=== PATIENT | female | born 1960 | race Caucasian/White ===

== ENCOUNTER 2017-05-30 15:57 | Inpatient (IN) | payer MEDICAID ==
[~2017-05-30] VITALS: Ht 162.6 cm; Wt 186.5 kg
[~2017-05-30 15:57] MED LIST: ACCU-CHEK COMPACT ST TOP; ACCU-CHEK COMPACT ST XX; ACTOS30 MG OR; AMOXICILLIN500 MG PO; AMPICILLIN500 MG PO; ANTI-FUNGAL12 TOP; ARMOUR THYRO30 MG PO; ARMOUR THYROID15 MG PO; AUGMENTIN875TAB PO; BACLOFEN10 MG PO; BACTRIM DS1 TAB PO; CIPRO500 MG OR; CIPROFLOXACN500 MG PO; CIPROFLOXACN750 MG PO; DARVOCET N-100100 - OR; DARVOCET-N 100100 MG OR; DIFLUCAN150 MG PO; DOXYCYC MONO100 MG OR; FLEXERIL10 MG OR; HUMALOG100 MG/ML SC; HUMULI1 SC; HUMULIN 70/30 SC; JANUVIA100 MG PO; LANTUS100 MG/ML SC; LEVOTHYROXIN50 MC1 PO; LORTAB 10 PO; LORTAB 5/3255 MG PO; LYRICA75 MG OR; MEDDOSEPAK OR; MEDDOSEPAK PO; METFORMIN HCL1000 MG PO; METFORMIN500 M1 OR; METFORMIN500 M1 PO; METFORMIN500 MG OR; METFORMIN500 MG PO; METFORMIN750 MG OR; METFORMIN850 MG PO; NAPROSYN500 MG OR; NAPROSYN500 MG PO; NAPROXEN250 MG PO; NAPROXEN500 MG PO; NO HOME MEDS; NORCO1 TA1 PO; NOVOLIN 70/30 SC; NOVOLIN 701000 UNITS SC; PAXIL40 MG OR; PHENERGAN12.5 MG/TA PO; PREDNISONE20 MG OR; PREMARIN1.25 MG OR; PROVENTIL INH17 GM IN; TRAMADOL HCL50 MG PO; TRENTAL400 MG OR; TRICOR48 MG PO; TRUETEST STRIPS SC; TYLENOL500 MG OR; ULTRAM50 M1 PO; VENTOLIN HFA IN; ZITHROMAX250 MG PO; [UNRECOGNIZED DRUG - OTHER] SC; insulin syringe
[2017-05-30 17:28] LABS: URINE BILIRUBIN - DIPSTICK NEGATIVE (NEGATIVE); URINE BLOOD DIPSTICK LARGE (NEGATIVE); URINE CLARITY CLOUDY; URINE COLOR YELLOW; URINE GLUCOSE - DIPSTICK >=1000 mg/dL (NEGATIVE); URINE KETONE 15 mg/dL (NEGATIVE); URINE NITRITE - DIPSTICK NEGATIVE (Negative); URINE PROTEIN - DIPSTICK 100 mg/dL (NEG-TRACE); URINE SPECIFIC GRAVITY 1.025; URINE UROBILINOGEN - DIPSTICK 0.2 E.U./dL (0.2)
[2017-05-30 17:29] LABS: URINE LEUK ESTERASE MODERATE (NEGATIVE)
[2017-05-30 17:33] LABS: HEMATOCRIT 33.8 % (37.0-47.0); HEMOGLOBIN 12.3 g/dl (12.0-16.0); IMMATURE GRANULOCYTES 0.4 % (0.0-1.0); MEAN CELL VOLUME 88.9 fL CALC (80.0-100.0); MEAN CORPUSCULAR HGB 32.4 pG CALC (26.0-32.0); MEAN CORPUSCULAR HGB CONC 36.4 g/L CALC (32.0-36.0); NEUT# 7.06 thou/uL (2.00-7.15); RED BLOOD COUNT 3.8 mill/uL (4.20-5.60); RED CELL DISTRI WIDTH 14.5 % (11.5-15.5)
[2017-05-30 17:38] LABS: URINE BACTERIA MANY hpf; URINE RBC 25-50 RBC/hpf (0-5); URINE SQUAMOUS EPITHELIAL CELL FEW EPI/hpf (0-FEW); URINE WBC >100 WBC/hpf (0-5)
[2017-05-30 17:45] LABS: ALBUMIN 4.1 g/dL (3.2-5.0); ALKALINE PHOSPHATASE 58 u/l (38-126); AMYLASE < 30 u/l (30-110); ANION GAP 16 (6-22 (CALC)); BILIRUBIN, TOTAL 1.9 mg/dL (0.0-1.4); BUN 15 mg/dL (7-17); BUN/CREATININE RATIO 22 (12-20 (CALC)); CALCIUM 8.5 mg/dL (8.4-10.2); CARBON DIOXIDE 24 mmol/l (22-30); CHLORIDE 93 mmol/l (95-108); CREATININE 0.7 mg/dL (0.5-1.0); GFR > 60 ML/MIN (>=60 (CALC)); GFR FOR AFR.AMER. > 60 ML/MIN (>=60 (CALC)); GLUCOSE 280 mg/dL (65-105); LIPASE 25 u/l (23-300); POTASSIUM 2.9 mmol/l (3.5-5.1); SGOT/AST 15 u/l (14-36); SGPT/ALT 33 u/l (9-52); SODIUM 130 mmol/l (137-146); TOTAL PROTEIN 7.2 g/dL (6.3-8.2)
[2017-05-30 17:56] LABS: MYOGLOBIN 45 ng/mL (0 - 62)
[2017-05-30 21:25] VITALS: BP 97/53
[2017-05-31 00:59] VITALS: BP 110/63
[2017-05-31 04:09] VITALS: BP 99/65
[2017-05-31 06:39] LABS: HEMATOCRIT 31.1 % (37.0-47.0); IMMATURE GRANULOCYTES 0.4 % (0.0-1.0); MEAN CELL VOLUME 90.7 fL CALC (80.0-100.0); MEAN CORPUSCULAR HGB 32.1 pG CALC (26.0-32.0); MEAN CORPUSCULAR HGB CONC 35.4 g/L CALC (32.0-36.0); NEUT# 3.77 thou/uL (2.00-7.15); RED BLOOD COUNT 3.43 mill/uL (4.20-5.60); RED CELL DISTRI WIDTH 14.5 % (11.5-15.5)
[2017-05-31 06:48] LABS: ANION GAP 12 (6-22 (CALC)); BUN 12 mg/dL (7-17); BUN/CREATININE RATIO 20 (12-20 (CALC)); CALCIUM 7.5 mg/dL (8.4-10.2); CARBON DIOXIDE 24 mmol/l (22-30); CREATININE 0.6 mg/dL (0.5-1.0); GFR > 60 ML/MIN (>=60 (CALC)); GFR FOR AFR.AMER. > 60 ML/MIN (>=60 (CALC)); GLUCOSE 81 mg/dL (65-105); POTASSIUM 3.2 mmol/l (3.5-5.1); SODIUM 136 mmol/l (137-146)
[2017-05-31 06:49] LABS: CHLORIDE 103 mmol/l (95-108)
[2017-05-31 09:00] VITALS: BP 117/58
[2017-05-31 11:31] VITALS: BP 90/50
[2017-05-31 13:04] LABS: C. DIFFICILE TOXIN A&B NEGATIVE (NEGATIVE)
[2017-05-31 15:48] VITALS: BP 103/56
[2017-05-31 19:33] VITALS: BP 102/55
[2017-06-01] VITALS (7 sets, daily range): BP systolic 91–117; BP diastolic 49–76
[2017-06-01 06:08] LABS: HEMATOCRIT 28.4 % (37.0-47.0); HEMOGLOBIN 10.2 g/dl (12.0-16.0); IMMATURE GRANULOCYTES 0.5 % (0.0-1.0); MEAN CELL VOLUME 89.9 fL CALC (80.0-100.0); MEAN CORPUSCULAR HGB 32.3 pG CALC (26.0-32.0); MEAN CORPUSCULAR HGB CONC 35.9 g/L CALC (32.0-36.0); NEUT# 2.87 thou/uL (2.00-7.15); RED BLOOD COUNT 3.16 mill/uL (4.20-5.60); RED CELL DISTRI WIDTH 14.4 % (11.5-15.5)
[2017-06-01 06:28] LABS: ANION GAP 12 (6-22 (CALC)); BUN 7 mg/dL (7-17); BUN/CREATININE RATIO 12 (12-20 (CALC)); CALCIUM 7.3 mg/dL (8.4-10.2); CARBON DIOXIDE 22 mmol/l (22-30); CHLORIDE 105 mmol/l (95-108); CREATININE 0.6 mg/dL (0.5-1.0); GFR > 60 ML/MIN (>=60 (CALC)); GFR FOR AFR.AMER. > 60 ML/MIN (>=60 (CALC)); GLUCOSE 75 mg/dL (65-105); MAGNESIUM 1.2 mg/dL (1.6-2.3); POTASSIUM 2.8 mmol/l (3.5-5.1); SODIUM 136 mmol/l (137-146)
[2017-06-02 04:36] VITALS: BP 116/65
[2017-06-02 05:58] LABS: HEMOGLOBIN 9.9 g/dl (12.0-16.0); MEAN CORPUSCULAR HGB 31.8 pG CALC (26.0-32.0); MEAN CORPUSCULAR HGB CONC 35.4 g/L CALC (32.0-36.0); RED BLOOD COUNT 3.11 mill/uL (4.20-5.60); RED CELL DISTRI WIDTH 14.2 % (11.5-15.5)
[2017-06-02 06:21] LABS: ANION GAP 12 (6-22 (CALC)); BUN 4 mg/dL (7-17); BUN/CREATININE RATIO 8 (12-20 (CALC)); CALCIUM 7.4 mg/dL (8.4-10.2); CARBON DIOXIDE 25 mmol/l (22-30); CHLORIDE 101 mmol/l (95-108); CREATININE 0.6 mg/dL (0.5-1.0); GFR > 60 ML/MIN (>=60 (CALC)); GFR FOR AFR.AMER. > 60 ML/MIN (>=60 (CALC)); GLUCOSE 61 mg/dL (65-105); POTASSIUM 2.7 mmol/l (3.5-5.1); SODIUM 135 mmol/l (137-146)
[2017-06-02 07:49] VITALS: BP 103/55
[2017-06-02 11:02] VITALS: BP 93/50
[2017-06-02 15:19] VITALS: BP 98/63
[2017-06-02 19:35] VITALS: BP 114/67
[2017-06-02 23:33] VITALS: BP 114/70
[2017-06-03] VITALS (9 sets, daily range): BP systolic 96–118; BP diastolic 42–68
[2017-06-03 05:20] LABS: ANION GAP 10 (6-22 (CALC)); BUN 3 mg/dL (7-17); BUN/CREATININE RATIO 7 (12-20 (CALC)); CALCIUM 7.3 mg/dL (8.4-10.2); CARBON DIOXIDE 25 mmol/l (22-30); CHLORIDE 104 mmol/l (95-108); CREATININE 0.5 mg/dL (0.5-1.0); GFR > 60 ML/MIN (>=60 (CALC)); GFR FOR AFR.AMER. > 60 ML/MIN (>=60 (CALC)); GLUCOSE 140 mg/dL (65-105); POTASSIUM 2.9 mmol/l (3.5-5.1); PROTHROMBIN TIME 11.4 SECONDS (9.0-12.5); SODIUM 136 mmol/l (137-146)
[2017-06-03 05:58] LABS: HEMATOCRIT 25.6 % (37.0-47.0); IMMATURE GRANULOCYTES 0.9 % (0.0-1.0); MEAN CELL VOLUME 91.1 fL CALC (80.0-100.0); MEAN CORPUSCULAR HGB CONC 35.2 g/L CALC (32.0-36.0); NEUT# 2.97 thou/uL (2.00-7.15); RED BLOOD COUNT 2.81 mill/uL (4.20-5.60); RED CELL DISTRI WIDTH 14.2 % (11.5-15.5)
[2017-06-03 17:37] LABS: ANION GAP 10 (6-22 (CALC)); BUN 3 mg/dL (7-17); BUN/CREATININE RATIO 6 (12-20 (CALC)); CALCIUM 7.1 mg/dL (8.4-10.2); CARBON DIOXIDE 24 mmol/l (22-30); CHLORIDE 103 mmol/l (95-108); CREATININE 0.4 mg/dL (0.5-1.0); GFR > 60 ML/MIN (>=60 (CALC)); GFR FOR AFR.AMER. > 60 ML/MIN (>=60 (CALC)); GLUCOSE 147 mg/dL (65-105); POTASSIUM 3.1 mmol/l (3.5-5.1); SODIUM 133 mmol/l (137-146)
[2017-06-04 00:02] VITALS: BP 108/52
[2017-06-04 04:44] VITALS: BP 114/61
[2017-06-04 07:48] VITALS: BP 113/67
[2017-06-04] MEDS ORDERED: TAMSULOSIN HCL0.4 MG PO (11:34)
[2017-06-04] MEDS ORDERED: DITROPAN5 MG/TA1 PO (11:34)
[2017-06-04] MEDS ORDERED: TRAMADOL HCL50 MG PO (11:34)
[2017-06-04] MEDS ORDERED: CIPROFLOXACN500 MG PO (11:34)
[2017-06-04] MEDS ORDERED: BACTRIM DS1 TAB PO (11:36)
== END 2017-06-04 13:10 | disposition home or self-care (01) | DRG 690 ==
LOC: ED 15:57 → ED-I 20:00 → ED 20:33 → MS2 20:34
PROVIDERS: Emergency Medicine; Internal Medicine; Nurse Practitioner Family; ADMIT Internal Medicine; ATTEND Internal Medicine
PROC: 0T778DZ Dilation of Left Ureter with Intraluminal Device, Via Natural or Artificial Opening Endoscopic (ICD-10-PCS; principal; 2017-06-03)
PROC: BT1F1ZZ Fluoroscopy of Left Kidney, Ureter and Bladder using Low Osmolar Contrast (ICD-10-PCS; 2017-06-03)
DX: N13.6 Pyonephrosis (principal); E11.65 Type 2 diabetes mellitus with hyperglycemia; E87.1 Hypo-osmolality and hyponatremia; E87.6 Hypokalemia; E03.9 Hypothyroidism, unspecified; M19.90 Unspecified osteoarthritis, unspecified site; F79 Unspecified intellectual disabilities; E83.42 Hypomagnesemia; R63.4 Abnormal weight loss; B96.20 Unspecified Escherichia coli [E. coli] as the cause of diseases classified elsewhere; Z87.442 Personal history of urinary calculi; Z87.891 Personal history of nicotine dependence; Z79.4 Long term (current) use of insulin; Z87.440 Personal history of urinary (tract) infections; Z79.84 Long term (current) use of oral hypoglycemic drugs
CPT/HCPCS: J1650; Q9967

== ENCOUNTER 2017-06-11 11:44 | Emergency (ER) | payer MEDICAID ==
[~2017-06-11] VITALS: Ht 162.6 cm; Wt 80.0 kg
[~2017-06-11 11:44] MED LIST changes: +DITROPAN5 MG/TA1 PO; +TAMSULOSIN HCL0.4 MG PO
[2017-06-11 12:32] LABS: URINE BILIRUBIN - DIPSTICK NEGATIVE (NEGATIVE); URINE BLOOD DIPSTICK SMALL (NEGATIVE); URINE COLOR YELLOW; URINE GLUCOSE - DIPSTICK NEGATIVE (NEGATIVE); URINE KETONE NEGATIVE (NEGATIVE); URINE LEUK ESTERASE TRACE (NEGATIVE); URINE NITRITE - DIPSTICK NEGATIVE (Negative); URINE PROTEIN - DIPSTICK NEGATIVE (NEG-TRACE); URINE UROBILINOGEN - DIPSTICK 0.2 E.U./dL (0.2)
[2017-06-11 12:33] LABS: URINE CLARITY SLIGHT CLOUDY; URINE EPITHELIAL CELLS FEW EPI/hpf (0-FEW); URINE RBC 0-2 RBC/hpf (0-5); URINE WBC 0-2 WBC/hpf (0-5)
[2017-06-11 13:21] LABS: HEMATOCRIT 30.3 % (37.0-47.0); HEMOGLOBIN 10.1 g/dl (12.0-16.0); IMMATURE GRANULOCYTES 0.6 % (0.0-1.0); MEAN CELL VOLUME 94.1 fL CALC (80.0-100.0); MEAN CORPUSCULAR HGB 31.4 pG CALC (26.0-32.0); MEAN CORPUSCULAR HGB CONC 33.3 g/L CALC (32.0-36.0); NEUT# 3.26 thou/uL (2.00-7.15); RED BLOOD COUNT 3.22 mill/uL (4.20-5.60)
[2017-06-11 13:25] LABS: ALBUMIN 4.1 g/dL (3.2-5.0); ALKALINE PHOSPHATASE 48 u/l (38-126); ANION GAP 14 (6-22 (CALC)); BILIRUBIN, TOTAL 0.9 mg/dL (0.0-1.4); BUN 17 mg/dL (7-17); BUN/CREATININE RATIO 26 (12-20 (CALC)); CALCIUM 9.4 mg/dL (8.4-10.2); CARBON DIOXIDE 29 mmol/l (22-30); CHLORIDE 101 mmol/l (95-108); CREATININE 0.7 mg/dL (0.5-1.0); GFR > 60 ML/MIN (>=60 (CALC)); GFR FOR AFR.AMER. > 60 ML/MIN (>=60 (CALC)); GLUCOSE 125 mg/dL (65-105); POTASSIUM 3.9 mmol/l (3.5-5.1); SGOT/AST 30 u/l (14-36); SGPT/ALT 38 u/l (9-52); SODIUM 140 mmol/l (137-146); TOTAL PROTEIN 7.4 g/dL (6.3-8.2)
[2017-06-11] MEDS ORDERED: PERCOCET 5/325M1 TAB PO (13:41)
[2017-06-11 13:59] VITALS: BP 132/71
== END 2017-06-11 14:05 | disposition home or self-care (01) | DRG 700 ==
LOC: ED 11:44
PROVIDERS: Emergency Medicine
DX: T83.84XA Pain due to genitourinary prosthetic devices, implants and grafts, initial encounter (principal); N20.9 Urinary calculus, unspecified; E11.9 Type 2 diabetes mellitus without complications; M19.90 Unspecified osteoarthritis, unspecified site; Y83.1 Surgical operation with implant of artificial internal device as the cause of abnormal reaction of the patient, or of later complication, without mention of misadventure at the time of the procedure

== ENCOUNTER 2017-07-19 08:52 | Emergency (ER) | payer MEDICAID ==
[~2017-07-19] VITALS: Ht 162.6 cm; Wt 70.0 kg
[~2017-07-19 08:52] MED LIST changes: +LANTUS100 UNIT/M SC; +PERCOCET 5/325M1 TAB PO
[2017-07-19] MEDS ORDERED: LEVOTHYROXIN150 MC1 PO (09:20)
[2017-07-19] MEDS ORDERED: BUDEPRION150 MG PO (09:21)
[2017-07-19] MEDS ORDERED: CELEXA20 MG PO (09:21)
[2017-07-19] MEDS ORDERED: NEURONTIN300 MG PO (09:21)
[2017-07-19 09:39] LABS: URINE BILIRUBIN - DIPSTICK NEGATIVE (NEGATIVE); URINE BLOOD DIPSTICK LARGE (NEGATIVE); URINE CLARITY CLOUDY; URINE COLOR YELLOW; URINE GLUCOSE - DIPSTICK >=1000 mg/dL (NEGATIVE); URINE KETONE NEGATIVE (NEGATIVE); URINE LEUK ESTERASE MODERATE (NEGATIVE); URINE NITRITE - DIPSTICK NEGATIVE (Negative); URINE PROTEIN - DIPSTICK 100 mg/dL (NEG-TRACE); URINE UROBILINOGEN - DIPSTICK 0.2 E.U./dL (0.2)
[2017-07-19 09:41] LABS: URINE BACTERIA MANY hpf; URINE WBC >100 WBC/hpf (0-5)
[2017-07-19 09:42] LABS: URINE RBC 25-50 RBC/hpf (0-5)
[2017-07-19 09:43] LABS: URINE YEAST MODERATE hpf
[2017-07-19 09:44] LABS: URINE SQUAMOUS EPITHELIAL CELL FEW EPI/hpf (0-FEW); URINE TRANSITIONAL EPI. CELLS FEW hpf
[2017-07-19] MEDS ORDERED: PERCOCET 5/321 COMBO PO (09:55)
[2017-07-19] MEDS ORDERED: BACTRIM DS1 TAB PO (09:55)
[2017-07-19] MEDS ORDERED: PYRIDIUM200 MG PO (09:55)
[2017-07-19 10:15] VITALS: BP 106/66
== END 2017-07-19 10:15 | disposition home or self-care (01) | DRG 690 ==
LOC: ED 08:52
PROVIDERS: Emergency Medicine
DX: N39.0 Urinary tract infection, site not specified (principal); B37.9 Candidiasis, unspecified; R30.0 Dysuria; R10.32 Left lower quadrant pain

== ENCOUNTER 2017-09-27 11:32 | Emergency (ER) | payer MEDICAID ==
[~2017-09-27] VITALS: Ht 162.6 cm; Wt 69.0 kg
[~2017-09-27 11:32] MED LIST changes: +BUDEPRION150 MG PO; +CELEXA20 MG PO; +LEVOTHYROXIN150 MC1 PO; +NEURONTIN300 MG PO; +PERCOCET 5/321 COMBO PO; +PYRIDIUM200 MG PO
[2017-09-27 13:34] LABS: URINE BILIRUBIN - DIPSTICK NEGATIVE (NEGATIVE); URINE BLOOD DIPSTICK TRACE-INTACT (NEGATIVE); URINE COLOR YELLOW; URINE GLUCOSE - DIPSTICK >=1000 mg/dL (NEGATIVE); URINE KETONE NEGATIVE (NEGATIVE); URINE LEUK ESTERASE TRACE (NEGATIVE); URINE NITRITE - DIPSTICK NEGATIVE (Negative); URINE PROTEIN - DIPSTICK NEGATIVE (NEG-TRACE); URINE UROBILINOGEN - DIPSTICK 0.2 E.U./dL (0.2)
[2017-09-27 13:36] LABS: URINE CLARITY CLEAR
[2017-09-27 13:37] LABS: HEMATOCRIT 31.1 % (37.0-47.0); HEMOGLOBIN 10.7 g/dl (12.0-16.0); IMMATURE GRANULOCYTES 1.3 % (0.0-1.0); MEAN CELL VOLUME 84.7 fL CALC (80.0-100.0); MEAN CORPUSCULAR HGB 29.2 pG CALC (26.0-32.0); MEAN CORPUSCULAR HGB CONC 34.4 g/L CALC (32.0-36.0); NEUT# 4.1 thou/uL (2.00-7.15); RED BLOOD COUNT 3.67 mill/uL (4.20-5.60); RED CELL DISTRI WIDTH 14.2 % (11.5-15.5)
[2017-09-27 13:41] LABS: ALBUMIN 3.9 g/dL (3.2-5.0); ALKALINE PHOSPHATASE 101 u/l (38-126); ANION GAP 19 (6-22 (CALC)); BILIRUBIN, TOTAL 0.6 mg/dL (0.0-1.4); BUN 20 mg/dL (7-17); BUN/CREATININE RATIO 28 (12-20 (CALC)); CALCIUM 10.6 mg/dL (8.4-10.2); CARBON DIOXIDE 28 mmol/l (22-30); CHLORIDE 90 mmol/l (95-108); CREATININE 0.7 mg/dL (0.5-1.0); GFR > 60 ML/MIN (>=60 (CALC)); GFR FOR AFR.AMER. > 60 ML/MIN (>=60 (CALC)); POTASSIUM 3.7 mmol/l (3.5-5.1); SGOT/AST 24 u/l (14-36); SGPT/ALT 25 u/l (9-52); SODIUM 132 mmol/l (137-146); TOTAL PROTEIN 7.4 g/dL (6.3-8.2)
[2017-09-27 13:52] LABS: MYOGLOBIN 26 ng/mL (0 - 62)
[2017-09-27 13:54] LABS: GLUCOSE 577 mg/dL (65-105)
[2017-09-27 15:46] VITALS: BP 102/60
== END 2017-09-27 15:53 | disposition home or self-care (01) | DRG 639 ==
LOC: ED 11:32 → ED-I 15:31 → ED 15:53
PROVIDERS: Emergency Medicine
DX: E11.65 Type 2 diabetes mellitus with hyperglycemia (principal); R53.1 Weakness; Z79.4 Long term (current) use of insulin; Z79.84 Long term (current) use of oral hypoglycemic drugs; R94.31 Abnormal electrocardiogram [ECG] [EKG]

== ENCOUNTER 2019-07-11 17:50 | Emergency (ER) | payer OTHER ==
[~2019-07-11] VITALS: Ht 162.6 cm; Wt 73.6 kg
[~2019-07-11 17:50] MED LIST changes: +NOVOLOG FL100 UNIT/M SC; +ROCEPHIN 2 GM2 GM IV
[2019-07-11] MEDS ORDERED: VALACYCLOVIR500 MG PO ×2 (18:20→18:28)
[2019-07-11] MEDS ORDERED: IBUPROFEN600 MG PO ×2 (18:20→18:28)
[2019-07-11] MEDS ORDERED: TRAZODONE100 MG PO (18:29)
[2019-07-11] MEDS ORDERED: DONEPEZIL5 MG PO (18:30)
[2019-07-11] MEDS ORDERED: ONDANSETRON4 MG PO (18:30)
[2019-07-11] MEDS ORDERED: ATORVASTATIN CA20 MG PO (18:31)
[2019-07-11] MEDS ORDERED: LEVOTHYROXIN137 MCG PO (18:31)
[2019-07-11] MEDS ORDERED: BUPROPION HCL150 M2 PO (18:32)
[2019-07-11 18:35] VITALS: BP 135/75
== END 2019-07-11 18:35 | disposition home or self-care (01) ==
LOC: ED 17:50
DX: B02.9 Zoster without complications (principal); E11.9 Type 2 diabetes mellitus without complications; F17.210 Nicotine dependence, cigarettes, uncomplicated; Z79.4 Long term (current) use of insulin

== ENCOUNTER 2021-10-22 12:56 | Emergency (ER) | payer OTHER ==
[~2021-10-22] VITALS: Ht 162.6 cm; Wt 81.3 kg
[~2021-10-22 12:56] MED LIST changes: +ATORVASTATIN CA20 MG PO; +BUPROPION HCL150 M2 PO; +DONEPEZIL5 MG PO; +IBUPROFEN600 MG PO; +LEVOTHYROXIN137 MCG PO; +ONDANSETRON4 MG PO; +TRAZODONE100 MG PO; +VALACYCLOVIR500 MG PO
[2021-10-22 13:32] LABS: GFR > 60 ML/MIN (>=60 (CALC)); GFR FOR AFR.AMER. > 60 ML/MIN (>=60 (CALC))
[2021-10-22 13:35] LABS: IMMATURE GRANULOCYTES 0.2 % (0.0-5.0); MEAN CELL VOLUME 88.9 fL CALC (80.0-100.0); MEAN CORPUSCULAR HGB 31.2 pG CALC (26.0-32.0); MEAN CORPUSCULAR HGB CONC 35.1 g/dL CAL (32.0-36.0); NEUT# 3.86 thou/uL (2.00-7.15); RED BLOOD COUNT 4.42 mill/uL (4.20-5.60); RED CELL DISTRI WIDTH 13.4 % (11.5-15.5)
[2021-10-22 13:38] LABS: HEMATOCRIT 39.3 % (37.0-47.0); HEMOGLOBIN 13.8 g/dl (12.0-16.0)
[2021-10-22 13:49] LABS: ALBUMIN 4.5 g/dL (3.2-5.0); ALKALINE PHOSPHATASE 66 u/l (38-126); BUN 24 mg/dL (7-17); BUN/CREATININE RATIO 33 (12-20 (CALC)); CARBON DIOXIDE 29 mmol/l (22-30); CHLORIDE 93 mmol/l (95-108); CREATININE 0.7 mg/dL (0.5-1.0); GFR > 60 ML/MIN (>=60 (CALC)); GFR FOR AFR.AMER. > 60 ML/MIN (>=60 (CALC)); POTASSIUM 4.3 mmol/l (3.5-5.1); SGOT/AST 20 u/l (14-36); TOTAL PROTEIN 7.8 g/dL (6.3-8.2)
[2021-10-22 13:50] LABS: ANION GAP 14 (6-22 (CALC)); BILIRUBIN, TOTAL 1.2 mg/dL (0.0-1.4); SODIUM 132 mmol/l (137-146)
[2021-10-22 16:22] LABS: URINE BILIRUBIN - DIPSTICK NEGATIVE (NEGATIVE); URINE BLOOD DIPSTICK TRACE-INTACT (NEGATIVE); URINE COLOR YELLOW; URINE GLUCOSE - DIPSTICK >=1000 mg/dL (NEGATIVE); URINE KETONE NEGATIVE (NEGATIVE); URINE LEUK ESTERASE NEGATIVE (NEGATIVE); URINE PROTEIN - DIPSTICK NEGATIVE (NEG-TRACE); URINE UROBILINOGEN - DIPSTICK 0.2 E.U./dL (0.2)
[2021-10-22 16:24] LABS: URINE NITRITE - DIPSTICK NEGATIVE (Negative)
[2021-10-22 16:47] LABS: ACT PARTIAL THROMBO TIME 21.7 SECONDS (20.0-32.5)
[2021-10-22 17:47] VITALS: BP 120/63
== END 2021-10-22 18:10 | disposition short-term general hospital (02) ==
LOC: ED 12:56
PROVIDERS: Family Medicine
DX: I20.0 Unstable angina (principal); E11.9 Type 2 diabetes mellitus without complications; F41.9 Anxiety disorder, unspecified; F32.A Depression, unspecified; F17.200 Nicotine dependence, unspecified, uncomplicated; Z79.4 Long term (current) use of insulin; Z87.440 Personal history of urinary (tract) infections
CPT/HCPCS: J1644; Q9967

== ENCOUNTER 2021-11-22 20:45 | Emergency (ER) | payer OTHER ==
[~2021-11-22] VITALS: Ht 162.6 cm; Wt 81.0 kg
[2021-11-22 21:31] LABS: HEMOGLOBIN 15.4 g/dl (12.0-16.0); IMMATURE GRANULOCYTES 0.4 % (0.0-5.0); MEAN CELL VOLUME 87.6 fL CALC (80.0-100.0); MEAN CORPUSCULAR HGB 31.4 pG CALC (26.0-32.0); MEAN CORPUSCULAR HGB CONC 35.8 g/dL CAL (32.0-36.0); NEUT# 10.97 thou/uL (2.00-7.15); RED BLOOD COUNT 4.91 mill/uL (4.20-5.60); RED CELL DISTRI WIDTH 14.4 % (11.5-15.5)
[2021-11-22 21:31] LABS: URINE BILIRUBIN - DIPSTICK NEGATIVE (NEGATIVE); URINE BLOOD DIPSTICK MODERATE (NEGATIVE); URINE COLOR YELLOW; URINE GLUCOSE - DIPSTICK >=1000 mg/dL (NEGATIVE); URINE KETONE TRACE mg/dL (NEGATIVE); URINE LEUK ESTERASE NEGATIVE (NEGATIVE); URINE PH 5.5 (4.5-8.0); URINE PROTEIN - DIPSTICK 100 mg/dL (NEG-TRACE); URINE SPECIFIC GRAVITY 1.015; URINE UROBILINOGEN - DIPSTICK 0.2 E.U./dL (0.2)
[2021-11-22 21:35] LABS: URINE NITRITE - DIPSTICK NEGATIVE (Negative)
[2021-11-22 21:36] LABS: URINE SQUAMOUS EPITHELIAL CELL FEW EPI/hpf (0-FEW)
[2021-11-22 21:52] LABS: ACT PARTIAL THROMBO TIME 21.3 SECONDS (20.0-32.5); PROTHROMBIN TIME 10.8 SECONDS (9.0-12.5)
[2021-11-22 21:55] LABS: ALBUMIN 4.9 g/dL (3.2-5.0); CREATININE 1.4 mg/dL (0.5-1.0); MAGNESIUM 1.7 mg/dL (1.6-2.3); POTASSIUM 3.9 mmol/l (3.5-5.1); TOTAL PROTEIN 8.7 g/dL (6.3-8.2)
[2021-11-22 22:04] LABS: BILIRUBIN, TOTAL 0.7 mg/dL (0.0-1.4)
[2021-11-22 22:28] VITALS: BP 130/55
[2021-11-22 22:33] VITALS: BP 108/87
[2021-11-22 22:46] VITALS: BP 129/65
== END 2021-11-22 23:40 | disposition short-term general hospital (02) ==
LOC: ED 20:45
DX: A41.9 Sepsis, unspecified organism (principal); E11.65 Type 2 diabetes mellitus with hyperglycemia; R41.82 Altered mental status, unspecified; F32.A Depression, unspecified; F41.9 Anxiety disorder, unspecified; F17.200 Nicotine dependence, unspecified, uncomplicated; Z79.4 Long term (current) use of insulin; Z20.822 Contact with and (suspected) exposure to COVID-19
CPT/HCPCS: J0131; J2060

== ENCOUNTER 2022-05-18 17:57 | Observation (INO) | payer OTHER ==
[~2022-05-18] VITALS: Ht 162.6 cm; Wt 83.3 kg
[2022-05-18] VITALS (12 sets, daily range): BP systolic 110–137; BP diastolic 63–75
[~2022-05-18 17:57] MED LIST changes: +LANTUS100 UNIT SC; -LANTUS100 UNIT/M SC
[2022-05-18] MEDS ORDERED: JARDIANCE25 MG PO (18:25)
[2022-05-18] MEDS ORDERED: LIPITOR20 M1 PO (18:25)
[2022-05-18] MEDS ORDERED: GABAPENTIN100 MG PO (18:26)
[2022-05-18] MEDS ORDERED: TRAZODONE50 MG PO (18:27)
[2022-05-18] MEDS ORDERED: OMEPRAZOLE DR40 MG PO (18:27)
[2022-05-18] MEDS ORDERED: LEVOTHYROXIN125 MCG PO (18:28)
[2022-05-18 18:32] LABS: IMMATURE GRANULOCYTES 0.4 % (0.0-5.0); MEAN CELL VOLUME 88.3 fL CALC (80.0-100.0); MEAN CORPUSCULAR HGB 30.5 pG CALC (26.0-32.0); MEAN CORPUSCULAR HGB CONC 34.6 g/dL CAL (32.0-36.0); NEUT# 2.81 thou/uL (2.00-7.15); RED BLOOD COUNT 4.19 mill/uL (4.20-5.60); RED CELL DISTRI WIDTH 14.9 % (11.5-15.5)
[2022-05-18 18:37] LABS: HEMOGLOBIN 12.8 g/dl (12.0-16.0)
[2022-05-18 18:50] LABS: ALBUMIN 4.2 g/dL (3.2-5.0); ALKALINE PHOSPHATASE 70 u/l (38-126); BILIRUBIN, TOTAL 0.8 mg/dL (0.0-1.4); BUN 17 mg/dL (7-17); BUN/CREATININE RATIO 22 (12-20 (CALC)); CHLORIDE 95 mmol/l (95-108); CREATININE 0.8 mg/dL (0.5-1.0); GFR FOR AFR.AMER. > 60 ML/MIN (>=60 (CALC)); GFR OTHER RACES > 60 ML/MIN (>=60 (CALC)); LIPASE 113 u/l (23-300); POTASSIUM 3.4 mmol/l (3.5-5.1); SGOT/AST 18 u/l (14-36); SODIUM 132 mmol/l (137-146)
[2022-05-18 19:02] LABS: ANION GAP 14 (6-22 (CALC)); CARBON DIOXIDE 26 mmol/l (22-30)
[2022-05-18 19:41] LABS: URINE BILIRUBIN - DIPSTICK NEGATIVE (NEGATIVE); URINE BLOOD DIPSTICK NEGATIVE (NEGATIVE); URINE COLOR YELLOW; URINE GLUCOSE - DIPSTICK >=1000 mg/dL (NEGATIVE); URINE KETONE NEGATIVE (NEGATIVE); URINE LEUK ESTERASE NEGATIVE (NEGATIVE); URINE PH 5.5 (4.5-8.0); URINE PROTEIN - DIPSTICK NEGATIVE (NEG-TRACE); URINE SPECIFIC GRAVITY <=1.005; URINE UROBILINOGEN - DIPSTICK 0.2 E.U./dL (0.2)
[2022-05-18 19:46] LABS: URINE NITRITE - DIPSTICK NEGATIVE (Negative)
[2022-05-18 19:52] LABS: PROTHROMBIN TIME 9.9 SECONDS (9.0-12.5)
[2022-05-18 19:57] LABS: CPK 36 u/l (30-165)
[2022-05-18 21:14] LABS: ANION GAP 10 (6-22 (CALC)); BUN 16 mg/dL (7-17); BUN/CREATININE RATIO 22 (12-20 (CALC)); CARBON DIOXIDE 29 mmol/l (22-30); CHLORIDE 100 mmol/l (95-108); CREATININE 0.7 mg/dL (0.5-1.0); GFR FOR AFR.AMER. > 60 ML/MIN (>=60 (CALC)); GFR OTHER RACES > 60 ML/MIN (>=60 (CALC)); POTASSIUM 3.5 mmol/l (3.5-5.1); SODIUM 135 mmol/l (137-146)
[2022-05-19] VITALS (9 sets, daily range): BP systolic 91–140; BP diastolic 45–77
[2022-05-19] MEDS ORDERED: GABAPENTIN300 M2 PO (08:23)
[2022-05-20] VITALS (7 sets, daily range): BP systolic 90–108; BP diastolic 37–55
[2022-05-20 05:11] LABS: HEMATOCRIT 35.2 % (37.0-47.0); HEMOGLOBIN 12.3 g/dl (12.0-16.0); IMMATURE GRANULOCYTES 0.5 % (0.0-5.0); MEAN CELL VOLUME 89.6 fL CALC (80.0-100.0); MEAN CORPUSCULAR HGB 31.3 pG CALC (26.0-32.0); MEAN CORPUSCULAR HGB CONC 34.9 g/dL CAL (32.0-36.0); NEUT# 2.04 thou/uL (2.00-7.15); RED BLOOD COUNT 3.93 mill/uL (4.20-5.60); RED CELL DISTRI WIDTH 14.5 % (11.5-15.5)
[2022-05-20 05:26] LABS: ALBUMIN 3.7 g/dL (3.2-5.0); ALKALINE PHOSPHATASE 54 u/l (38-126); ANION GAP 13 (6-22 (CALC)); BILIRUBIN, TOTAL 0.8 mg/dL (0.0-1.4); BUN 17 mg/dL (7-17); BUN/CREATININE RATIO 22 (12-20 (CALC)); CARBON DIOXIDE 30 mmol/l (22-30); CHLORIDE 103 mmol/l (95-108); CREATININE 0.8 mg/dL (0.5-1.0); GFR FOR AFR.AMER. > 60 ML/MIN (>=60 (CALC)); GFR OTHER RACES > 60 ML/MIN (>=60 (CALC)); POTASSIUM 3.8 mmol/l (3.5-5.1); SGOT/AST 19 u/l (14-36); TOTAL PROTEIN 6.3 g/dL (6.3-8.2)
[2022-05-20 05:28] LABS: SODIUM 142 mmol/l (137-146)
[2022-05-20] MEDS ORDERED: ASPIRIN81 MG PO (11:17)
[2022-05-20] MEDS ORDERED: GABAPENTIN100 MG PO (11:18)
[2022-05-20] MEDS ORDERED: LEVEMIR100 UNIT SC (11:18)
[2022-05-20] MEDS ORDERED: HUMALOG100 UNIT SC (11:18)
== END 2022-05-20 14:00 | disposition home or self-care (01) ==
LOC: ED 17:57 → MS2 21:19
PROVIDERS: Family Medicine; ADMIT Internal Medicine; ATTEND Internal Medicine
DX: E11.65 Type 2 diabetes mellitus with hyperglycemia (principal); E87.1 Hypo-osmolality and hyponatremia; E03.9 Hypothyroidism, unspecified; F32.A Depression, unspecified; F41.9 Anxiety disorder, unspecified; F17.200 Nicotine dependence, unspecified, uncomplicated; Z87.442 Personal history of urinary calculi; Z79.4 Long term (current) use of insulin; Z20.822 Contact with and (suspected) exposure to COVID-19; Z79.84 Long term (current) use of oral hypoglycemic drugs
CPT/HCPCS: G0378; Q9967

== ENCOUNTER 2023-02-05 15:43 | Emergency (ER) | payer OTHER ==
[~2023-02-05] VITALS: Ht 162.6 cm; Wt 92.0 kg
[2023-02-05] VITALS (12 sets, daily range): BP systolic 93–112; BP diastolic 39–82
[~2023-02-05 15:43] MED LIST changes: +ASPIRIN81 MG PO; +GABAPENTIN100 MG PO; +GABAPENTIN300 M2 PO; +HUMALOG100 UNIT SC; +JARDIANCE25 MG PO; +LEVEMIR100 UNIT SC; +LEVOTHYROXIN125 MCG PO; +LIPITOR20 M1 PO; +OMEPRAZOLE DR40 MG PO; +TRAZODONE50 MG PO
[2023-02-05 16:26] LABS: BASO% 0.7 % (0-3); EOS% 2.7 % (0-8); HEMATOCRIT 35.6 % (37.0-47.0); HEMOGLOBIN 12.5 g/dl (12.0-16.0); IMMATURE GRANULOCYTES 0.3 % (0.0-5.0); LYMPH% 34.3 % (15-41); MEAN CELL VOLUME 88.6 fL CALC (80.0-100.0); MEAN CORPUSCULAR HGB 31.1 pG CALC (26.0-32.0); MEAN CORPUSCULAR HGB CONC 35.1 g/dL CAL (32.0-36.0); MONO% 10.1 % (2-13); NEUT# 1.54 thou/uL (2.00-7.15); NEUT% 51.9 % (42-76); RED BLOOD COUNT 4.02 mill/uL (4.20-5.60); RED CELL DISTRI WIDTH 14.5 % (11.5-15.5)
[2023-02-05 16:39] LABS: ALBUMIN 4.3 g/dL (3.2-5.0); ALKALINE PHOSPHATASE 55 u/l (38-126); AMYLASE 37 u/l (30-110); ANION GAP 13 (6-22 (CALC)); BILIRUBIN, TOTAL 0.7 mg/dL (0.02-1.3); BUN 12 mg/dL (8-23); BUN/CREATININE RATIO 15 (12-20 (CALC)); CARBON DIOXIDE 29 mmol/l (22-30); CHLORIDE 97 mmol/l (95-108); CREATININE 0.8 mg/dL (0.5-1.0); GFR FOR AFR.AMER. > 60 ML/MIN (>=60 (CALC)); GFR OTHER RACES > 60 ML/MIN (>=60 (CALC)); LIPASE 72 u/l (23-300); SGOT/AST 30 u/l (9-36); SODIUM 136 mmol/l (137-146); TOTAL PROTEIN 6.8 g/dL (6.3-8.2)
[2023-02-05 16:42] LABS: POTASSIUM 3.1 mmol/l (3.5-5.1)
[2023-02-05 17:33] LABS: URINE BLOOD DIPSTICK TRACE-LYSED (NEGATIVE); URINE COLOR YELLOW; URINE GLUCOSE - DIPSTICK >=1000 mg/dL (NEGATIVE); URINE KETONE NEGATIVE (NEGATIVE); URINE LEUK ESTERASE NEGATIVE (NEGATIVE); URINE PROTEIN - DIPSTICK 30 mg/dL (NEG-TRACE); URINE UROBILINOGEN - DIPSTICK 0.2 E.U./dL (0.2)
[2023-02-05 17:35] LABS: URINE NITRITE - DIPSTICK NEGATIVE (Negative); URINE RBC 0-2 RBC/hpf (0-5); URINE SQUAMOUS EPITHELIAL CELL RARE EPI/hpf (0-FEW); URINE WBC 0-2 WBC/hpf (0-5)
[2023-02-05] MEDS ORDERED: ONDANSETRON4 MG PO (19:23)
[2023-02-05] MEDS ORDERED: CIPROFLOXACN500 MG PO (19:23)
[2023-02-05] MEDS ORDERED: METRONIDAZOLE500 MG PO (19:23)
[2023-02-06 11:57] LABS: URINE BILIRUBIN - DIPSTICK NEGATIVE (NEGATIVE)
== END 2023-02-05 19:38 | disposition home or self-care (01) ==
LOC: ED 15:43
PROVIDERS: Nurse Practitioner
DX: U07.1 COVID-19 (principal); A08.39 Other viral enteritis; R52 Pain, unspecified; E11.9 Type 2 diabetes mellitus without complications; Z79.4 Long term (current) use of insulin
CPT/HCPCS: Q9967

== ENCOUNTER 2024-09-10 12:15 | Observation (INO) | payer OTHER ==
[2024-09-10] VITALS (13 sets, daily range): BP systolic 93–132; BP diastolic 44–77
[~2024-09-10] VITALS: Ht 162.6 cm; Wt 90.0 kg
[~2024-09-10 12:15] MED LIST changes: +METRONIDAZOLE500 MG PO
--- NOTE | 2024-09-10 12:15 | NUR ---
PT BROUGHT BACK TO ER ROOM 14 VIA EMS
[2024-09-10 12:55] LABS: BASO% 0.7 % (0-3); EOS% 5.4 % (0-8); HEMATOCRIT 33.4 % (37.0-47.0); HEMOGLOBIN 11.3 g/dl (12.0-16.0); IMMATURE GRANULOCYTES 0.2 % (0.0-5.0); LYMPH% 22.7 % (15-41); MEAN CELL VOLUME 92.8 fL CALC (80.0-100.0); MEAN CORPUSCULAR HGB 31.4 pG CALC (26.0-32.0); MEAN CORPUSCULAR HGB CONC 33.8 g/dL CAL (32.0-36.0); MONO% 6.8 % (2-13); NEUT# 2.83 thou/uL (2.00-7.15); NEUT% 64.2 % (42-76); RED BLOOD COUNT 3.6 mill/uL (4.20-5.60)
[2024-09-10] MEDS ORDERED: ACETAMINOPHEN 325 MG/TAB PO ONE (13:05)
[2024-09-10 13:28] LABS: ALBUMIN 4.3 g/dL (3.2-5.0); ALKALINE PHOSPHATASE 41 u/l (38-126); ANION GAP 12 (6-22 (CALC)); BILIRUBIN, TOTAL 0.9 mg/dL (0.02-1.3); BUN 27 mg/dL (8-23); BUN/CREATININE RATIO 27 (12-20 (CALC)); CARBON DIOXIDE 30 mmol/l (22-30); CHLORIDE 99 mmol/l (95-108); ESTIMATED GFR 63 ML/MIN (>=90 (CALC)); MAGNESIUM 1.8 mg/dL (1.6-2.3); SGOT/AST 22 u/l (9-36); SODIUM 137 mmol/l (137-146); TOTAL PROTEIN 7.2 g/dL (6.3-8.2)
[2024-09-10 13:29] LABS: POTASSIUM 3.9 mmol/l (3.5-5.1)
[2024-09-10] MEDS ORDERED: SODIUM CHLORIDE 0.9% 1,000 ML IV ONE (14:45)
[2024-09-10] MEDS ORDERED: ACETAMINOPHEN 325 MG/TAB PO PRN (17:55)
[2024-09-10] MEDS ORDERED: MAGNESIUM HYDROXIDE 30 ML UDC PO PRN (17:55)
[2024-09-10] MEDS ORDERED: Zaleplon 5 MG/CAP PO PRN (17:55)
--- NOTE | 2024-09-10 19:15 | NUR ---
REPORT RECEIVED FROM Samantha CALLAHAN RN. PATIENT AWITING CLEAN BED ON MED SURG.
--- NOTE | 2024-09-10 19:25 | NUR ---
REPORT CALLED TO Silvia WERNER LPN
--- NOTE | 2024-09-10 19:41 | NUR ---
PATIENT CAME IN TO ROOM AT 1937 FROM ER VIA [employer] [facility]. A&O X4. BED SIDE ASSESSMENT COMPLETE. FOLY CATH IN PLACE FLOWING WITH LEO CLEAR URINE. EQUAL UNLABORED RESP. NO VISUAL SIGNS OF DISTRESS. NORMAL S1&S2. BOWEL SOUNDS PRESENT IN ALL 4 QUADRANTS. ABDOMEN SOFT AND DISTEDED. PERIPHERAL PULSES STRONG AND EQUAL. NO COMPLAINTS OF PAIN AT THIS TIME. BED AT LOWEST POSITION. CALL LIGHT WITH IN REACH.
[2024-09-10] MEDS ORDERED: ENOXAPARIN SODIUM 40 MG/0.4 ML SYR SC SCH (21:00)
[2024-09-10] MEDS ORDERED: ATORVASTATIN CALCIUM 20 MG/TAB PO SCH (21:00)
[2024-09-10] MEDS ORDERED: traZODone HCL 50 MG/TAB PO SCH (21:00)
[2024-09-10] MEDS ORDERED: INSULIN GLARGINE 100 UNITS/ML SC SCH (21:00)
[2024-09-10] MEDS ORDERED: INSULIN LISPRO 100 UNITS/ML ML SC SCH (21:00)
[2024-09-10] MEDS ORDERED: GABAPENTIN 300 MG/CAP PO SCH (21:30)
[2024-09-10] MEDS ORDERED: GABAPENTIN300 M2 PO (21:50)
--- NOTE | 2024-09-11 00:40 | NUR ---
PATIENT OBSERVED TO BE SLEEPING IN BED WITH EYES CLOSED. EQUAL UNLABORED RESP, NO VISUAL SIGNS OF DISTRESS. FOLY CATH IN PLACE WITH CLEAR LEO URINE. BED AT LOWEST POSITION. CALL LIGHT WITH IN REACH.
[2024-09-11 03:46] VITALS: BP 106/46
--- NOTE | 2024-09-11 04:22 | NUR ---
PATIENT OBSERVED TO BE RESTING IN BED WITH EYES CLOSED. PATIENT RESPONDS TO VERBAL STIMULI. CAN MAKE NEEDS KNOWN, NONE NEEDED AT THIS TIME. BED AT LOWEST POSITION. CALL LIGHT WITH IN REACH.
[2024-09-11] MEDS ORDERED: LEVOTHYROXINE SODIUM 25 MCG/TAB PO SCH (06:00)
[2024-09-11] MEDS ORDERED: LEVOTHYROXINE SODIUM 112 MCG/TAB PO SCH (06:00)
[2024-09-11 06:04] LABS: CHOLESTEROL HDL RATIO 4.1 (<4.4 (CALC)); MAGNESIUM 1.8 mg/dL (1.6-2.3)
[2024-09-11 07:11] VITALS: BP 121/59
[2024-09-11] MEDS ORDERED: PANTOPRAZOLE SODIUM Sesquihydr 40 MG/TAB PO SCH (09:00)
[2024-09-11 10:59] VITALS: BP 128/65
--- NOTE | 2024-09-11 11:42 | NUR ---
BOONE CATHETER REMOVED AT 1142, PT HAS BEEN URINATING WITHOUT DIFFUCULTY SINCE REMOVAL.
--- NOTE | 2024-09-11 12:00 | NUR ---
STABLE CONDITION, FAMILY AWAITING DISCHARGE ORDERS, INFORMED STAFF HAS TO MONITOR URINATION TO VERY PT IS ABLE TO URINATE ON HER OWN BEFORE GOING HOME, STATED UNDERSTANDING.
[2024-09-11] MEDS ORDERED: LEVEMIR100 UNIT SC (14:21)
[2024-09-11 15:00] VITALS: BP 126/53
--- NOTE | 2024-09-11 15:31 | NUR ---
Discharge instructions given. Patient verbalizes understanding of same. Discharged in fair condition via Wheelchair to Home with family. All belongings sent with pt.
== END 2024-09-11 15:35 | disposition home or self-care (01) ==
LOC: ED 12:15 → ED-I 16:00 → ED 16:25 → MS2 16:26
PROVIDERS: Nurse Practitioner; ADMIT Internal Medicine; ATTEND Internal Medicine
DX: R07.9 Chest pain, unspecified (principal); E11.649 Type 2 diabetes mellitus with hypoglycemia without coma; K21.9 Gastro-esophageal reflux disease without esophagitis; Z79.4 Long term (current) use of insulin; Z86.73 Personal history of transient ischemic attack (TIA), and cerebral infarction without residual deficits; Z87.442 Personal history of urinary calculi; Z20.822 Contact with and (suspected) exposure to COVID-19
CPT/HCPCS: G0378; J1650; J1815

== ENCOUNTER 2024-12-16 18:50 | Emergency (ER) | payer OTHER ==
[~2024-12-16] VITALS: Ht 162.6 cm; Wt 81.0 kg
[2024-12-16] VITALS (7 sets, daily range): BP systolic 122–136; BP diastolic 64–72
[2024-12-16 19:21] LABS: BASO% 0.6 % (0-3); EOS% 6.6 % (0-8); HEMATOCRIT 33.9 % (37.0-47.0); HEMOGLOBIN 11.8 g/dl (12.0-16.0); IMMATURE GRANULOCYTES 0.4 % (0.0-5.0); LYMPH% 28.4 % (15-41); MEAN CELL VOLUME 88.5 fL CALC (80.0-100.0); MEAN CORPUSCULAR HGB 30.8 pG CALC (26.0-32.0); MEAN CORPUSCULAR HGB CONC 34.8 g/dL CAL (32.0-36.0); MONO% 5.8 % (2-13); NEUT# 2.93 thou/uL (2.00-7.15); NEUT% 58.2 % (42-76); RED BLOOD COUNT 3.83 mill/uL (4.20-5.60); RED CELL DISTRI WIDTH 13.9 % (11.5-15.5)
[2024-12-16] MEDS ORDERED: traMADol HCL 50 MG/TAB PO ONE (19:35)
[2024-12-16 19:40] LABS: C-REACTIVE PROTEIN 1.6 mg/dL (0-0.9); CREATININE 0.9 mg/dL (0.5-1.0); POTASSIUM 3.5 mmol/l (3.5-5.1)
[2024-12-16] MEDS ORDERED: COLCHICINE 0.6 MG/TAB PO ONE ×2 (20:00→20:05)
[2024-12-16] MEDS ORDERED: NAPROXEN500 MG PO (21:08)
[2024-12-16] MEDS ORDERED: PREDNISONE20 MG PO (21:08)
== END 2024-12-16 21:20 | disposition home or self-care (01) ==
LOC: ED 18:50
PROVIDERS: Nurse Practitioner
DX: M25.571 Pain in right ankle and joints of right foot (principal); R70.0 Elevated erythrocyte sedimentation rate; E11.65 Type 2 diabetes mellitus with hyperglycemia; E11.40 Type 2 diabetes mellitus with diabetic neuropathy, unspecified; Z79.4 Long term (current) use of insulin